=== PATIENT | male | born 1950 | race Caucasian/White ===

== ENCOUNTER 2022-01-14 15:48 | Emergency (ER) | payer MEDICARE ==
[~2022-01-14] VITALS: Ht 170.2 cm; Wt 77.3 kg
[2022-01-14 15:51] VITALS: BP 181/89
[2022-01-14] MEDS ORDERED: TETanus/Pertussis (Acell)/Diphther VAC/PF (Tdap-Adult) 0.5ml syringe IMVAC ONE (18:20)
[2022-01-14] MEDS ORDERED: LIDOcaine 1% 30ml preserv. free vial IJ ONE (18:20)
[2022-01-14] MEDS ORDERED: CEPH250T PO (19:38)
[2022-01-14] MEDS ORDERED: HYDR-3965 PO (19:38)
== END 2022-01-14 19:58 | disposition home or self-care (01) ==
LOC: ER 15:49
DX: S62.633A Displaced fracture of distal phalanx of left middle finger, initial encounter for closed fracture (principal); S62.631A Displaced fracture of distal phalanx of left index finger, initial encounter for closed fracture; Z88.1 Allergy status to other antibiotic agents; X58.XXXA Exposure to other specified factors, initial encounter; Y93.89 Activity, other specified; Y92.89 Other specified places as the place of occurrence of the external cause; Y99.8 Other external cause status
CPT/HCPCS: 12001; 73120; 73130; 90471; 90715; 99284; A6449